=== PATIENT | female | born 1995 | race Caucasian/White ===

== ENCOUNTER 2017-11-09 20:47 | Emergency (ER) | payer SELFPAY ==
[~2017-11-09] VITALS: Ht 170.2 cm; Wt 61.4 kg
[2017-11-09 20:59] VITALS: Ht 170.2 cm; Wt 61.4 kg
[2017-11-10 02:13] LABS: CREATININE - SERUM 0.7 mg/dL (0.6-1.3); HCG SERUM NEGATIVE (NEGATIVE); UREA NITROGEN 7 mg/dL (7-18)
[2017-11-10 02:20] LABS: BASOPHILS 0.1 % (0-2); EOSINOPHILS 0.2 % (0-7); HEMATOCRIT 38.2 % (36.0-48.0); HEMOGLOBIN 12.8 g/dL (12-16); IMMATURE GRANULOCYTES 0.3 % (0-5); LYMPHOCYTES 8.6 % (15-50); MCH 30.7 pg (26.0-34.0); MCHC 33.5 g/dL (31.0-37.0); MCV 91.6 fL (80.0-100.0); MEAN PLATELET VOLUME 9.3 fL (7.4-10.4); MONOCYTES 8.6 % (2-11); NEUTROPHILS 82.2 % (40-80); PLATELET COUNT 238 10x3/uL (130-400); RBC 4.17 10x6/uL (4.00-5.40); RDW 13.3 % (11.5-14.5); WBC 15.3 10x3/uL (4.8-10.8)
[2017-11-10 02:30] LABS: ALBUMIN 3.2 g/dL (3.4-5.0); ALKALINE PHOSPHATASE 62 U/L (46-116); ALT (SGPT) 13 U/L (10-68); BILIRUBIN - TOTAL 0.53 mg/dL (0.2-1.3); CALC OSMOLALITY 276 mosm/kg (275-300); CALCIUM 8.4 mg/dL (8.5-10.1); CARBON DIOXIDE 25.2 mmol/L (21.0-32.0); CHLORIDE - SERUM 105 mmol/L (98-107); GLUCOSE 113 mg/dL (74-106); POTASSIUM - SERUM 3.5 mmol/L (3.5-5.1); PROTEIN - SERUM 6.4 g/dL (6.4-8.2); SODIUM 139 mmol/L (136-145)
[2017-11-10 02:45] LABS: eGFR NON AFRICAN AMERICAN > 90 mL/min (90-120)
[2017-11-10] MEDS ORDERED: AUGMENTIN 875-11 TAB PO (04:23)
[2017-11-10 04:42] VITALS: BP 108/76
== END 2017-11-10 04:42 | disposition home or self-care (01) ==
LOC: D.ER 20:47
PROVIDERS: Family Medicine
DX: J02.9 Acute pharyngitis, unspecified (principal); R50.9 Fever, unspecified; F17.200 Nicotine dependence, unspecified, uncomplicated